=== PATIENT | male | born 1965 | race Caucasian/White ===

== ENCOUNTER → 2017-03-25 | Outpatient (CLI) | payer MEDICARE ==
[~2017-03-25] MED LIST: ATEN100T PO; CONTRAST GIVEN MC PRN; CYAN10005 PO; FLUC100T4 PO; FLUO20CA16 PO; FURO-68 PO; IOHEXOL 240 MG/ML 50ML VIAL. ONE; IOHEXOL 240 MG/ML 50ML VIAL. PO ONE; IOHEXOL 300 MG/ML 75 ML VIAL IV ONE; IOHEXOL 300 MG/ML 75 ML VIAL ONE; MULT1TAB52 PO; POTA20TA82 PO
--- NOTE | 2017-03-25 09:43 | RAD ---
CT of the abdomen and pelvis with contrast, 03/25/2017: History: Abdominal pain Multidetector CT imaging was performed following oral and IV administration of contrast. The patient's entire abdomen cannot be included in the [id number] due to the patient's large size. Associated streak artifacts degrade image quality. No hepatic mass or bile duct dilatation is evident. The gallbladder is unremarkable. No pancreatic abnormality is seen. The spleen is of normal size. No renal or adrenal abnormality is detected. The abdominal aorta is of normal caliber. No abdominal or pelvic adenopathy is seen. The bowel loops are not dilated. The appendix is visualized and is unremarkable. No free air or free fluid is evident in the abdomen or pelvis. There is a ventral hernia between the rectus abdominis muscles at the mid pelvic level. It contains fat and vascular structures. It extends inferiorly into the patient's abdominal pannus. It measures approximately 18 cm in greatest diameter. No bowel herniation is currently present. IMPRESSION: 1. Large fat-containing ventral hernia. 2. No acute abdominal or pelvic abnormality is detected. PQRS Compliance Statement: One or more of the following individualized dose reduction techniques were utilized for this examination: 1. Automated exposure control 2. Adjustment of the mA and/or kV according to patient size 3. Use of iterative reconstruction technique
== END | disposition home or self-care (01) ==
LOC: CT 07:41
PROVIDERS: ATTEND Family Medicine
DX: K43.9 Ventral hernia without obstruction or gangrene (principal); E65 Localized adiposity; I10 Essential (primary) hypertension
CPT/HCPCS: 74177; Q9966; Q9967

== ENCOUNTER → 2017-06-24 | Outpatient (CLI) | payer MEDICARE ==
[~2017-06-24] MED LIST changes: -CONTRAST GIVEN MC PRN; -IOHEXOL 240 MG/ML 50ML VIAL. ONE; -IOHEXOL 240 MG/ML 50ML VIAL. PO ONE; -IOHEXOL 300 MG/ML 75 ML VIAL IV ONE; -IOHEXOL 300 MG/ML 75 ML VIAL ONE
--- NOTE | 2017-06-24 10:35 | RAD ---
Indication: Sinus headache. Axial imaging through the brain and paranasal sinuses was performed without contrast. Sagittal and coronal reformations were also performed. CT brain: The ventricles and sulci are within normal limits. No sulcal effacement, midline shift or hemorrhage is detected. Cisterns are patent. Impression: No acute intracranial process is detected. CT sinuses: The frontal sinus is clear. The ethmoid air cells and sphenoid sinus are clear. Bilateral maxillary sinuses are clear. No mucosal thickening or air-fluid levels are seen. The ostiomeatal units are patent. There is slight nasal septal deviation to the left with nasal septal spur projecting to the left. The mastoid air cells are well aerated. Impression: No evidence of sinusitis. PQRS Compliance Statement: One or more of the following individualized dose reduction techniques were utilized for this examination: 1. Automated exposure control 2. Adjustment of the mA and/or kV according to patient size 3. Use of iterative reconstruction technique
== END | disposition home or self-care (01) ==
LOC: KCIC CT 08:32
PROVIDERS: ATTEND Psychiatry & Neurology Neurology with Special Qualifications in Child Neurology
DX: J34.2 Deviated nasal septum (principal); J34.89 Other specified disorders of nose and nasal sinuses
CPT/HCPCS: 70450; 70486